=== PATIENT | female | born 2000 | race Caucasian/White ===

== ENCOUNTER 2018-04-17 20:19 | Emergency (ER) | payer BC ==
[2018-04-17] MEDS ORDERED: NS 500 ML IV ONE (20:28)
[2018-04-17] MEDS ORDERED: ONDANSETRON 4 MG/2 ML VIAL IVP ONE (20:28)
[2018-04-17 20:46] LABS: PLATELET COUNT 280 10^3/uL (150-400)
--- NOTE | 2018-04-17 21:45 | EDPHY ---
H & P Time Seen by Provider: 04/17/18 20:29 HPI/ROS: CHIEF COMPLAINT: Nausea vomiting diarrhea HISTORY OF PRESENT ILLNESS: 17-year-old female here with nausea vomiting and diarrhea that started this morning. She has had no blood or bile in her emesis and there has been no blood in her stool. She has no history of Crohn's or ulcerative colitis. She has no recent trouble. She has no recent antibiotic use. She denies any fever or chills, she denies . She denies pain with urination or vaginal discharge. REVIEW OF SYSTEMS: Constitutional: No fever, no chills. Eyes: No discharge. ENT: No sore throat. Cardiovascular: No chest pain, no palpitations. Respiratory: No cough, no shortness of breath. Gastrointestinal: No abdominal pain, + vomiting. Genitourinary: No hematuria. Musculoskeletal: No back pain. Skin: No rashes. Neurological: No headache. Smoking Status: Never smoked Physical Exam: General Appearance: Alert and no distress. ENT: normal dentition. No tonsillar exudate or swelling. Eyes: Pupils equal and round no injection. Respiratory: Chest is nontender, lungs are clear to auscultation. Cardiac: regular rate and rhythm. No lower extremity edema Gastrointestinal: Abdomen is soft and nontender, no masses, bowel sounds normal. Musculoskeletal: Neck is supple and nontender. Extremities have full range of motion and are nontender without deformity Skin: No rashes or lesions. Neuro: Cranial nerves grossly intact. Ambulatory. Constitutional: Initial Vital Signs Temperature (C) 37.0 C 04/17/18 20:22 Heart Rate 119 H 04/17/18 20:22 Respiratory Rate 16 04/17/18 20:22 Blood Pressure 120/80 04/17/18 20:22 O2 Sat (%) 99 04/17/18 20:22 O2 Delivery Mode Room Air Allergies/Adverse Reactions: Penicillins Allergy (Intermediate, Verified 04/17/18 20:20) Rash Home Medications: Medication Instructions Recorded Kariva 28 Day Tablet 04/17/18 Ondansetron Odt [Zofran Odt 4 mg 4 mg PO Q8 #12 tab 04/17/18 (*)] Medical Decision Making ED Course/Re-evaluation: 17-year-old female here with nausea and vomiting and diarrhea starting this morning. She has no abdominal tenderness and labs show minimal leukocytosis felt that the gross abnormalities. She feels greatly improved after IV fluids and Zofran. She is tolerating p.o. At time of discharge. Differential Diagnosis: Appendicitis, bowel obstruction, dehydration, , pyelonephritis - Data Points Laboratory Results: Laboratory Results 04/17/18 20:40 04/17/18 20:40 04/17/18 04/17/18 04/17/18 20:40 20:40 20:40 WBC 12.40 10^3/uL H 10^3/uL (3.80-9.50) RBC 4.53 10^6/uL 10^6/uL (4.18-5.33) Hgb 13.4 g/dL g/dL (12.6-16.3) Hct 39.0 % % (38.0-47.0) MCV 86.1 fL fL (81.5-99.8) MCH 29.6 pg pg (27.9-34.1) MCHC 34.4 g/dL g/dL (32.4-36.7) RDW 12.7 % % (11.5-15.2) Plt Count 280 10^3/uL 10^3/uL (150-400) MPV 10.8 fL fL (8.7-11.7) Neut % (Auto) 87.5 % H % (39.3-74.2) Lymph % (Auto) 8.6 % L % (15.0-45.0) [place] % (Auto) 3.3 % L % (4.5-13.0) Eos % (Auto) 0.2 % L % (0.6-7.6) Baso % (Auto) 0.2 % L % (0.3-1.7) Nucleat RBC Rel Count 0.0 % % (0.0-0.2) Absolute Neuts (auto) 10.85 10^3/uL H 10^3/uL (1.70-6.50) Absolute Lymphs (auto) 1.07 10^3/uL 10^3/uL (1.00-3.00) Absolute Monos (auto) 0.41 10^3/uL 10^3/uL (0.30-0.80) Absolute Eos (auto) 0.02 10^3/uL L 10^3/uL (0.03-0.40) Absolute Basos (auto) 0.02 10^3/uL 10^3/uL (0.02-0.10) Absolute Nucleated RBC 0.00 10^3/uL 10^3/uL (0-0.01) Immature Gran % 0.2 % % (0.0-1.1) Immature Gran # 0.03 10^3/uL 10^3/uL (0.00-0.10) Sodium 136 mEq/L mEq/L (135-145) Potassium 3.8 mEq/L mEq/L (3.3-5.0) Chloride 100 mEq/L mEq/L (97-110) Carbon Dioxide 21 mEq/l L mEq/l (22-31) Anion Gap 15 mEq/L H mEq/L (6-14) BUN 15 mg/dL mg/dL (7-23) Creatinine 0.8 mg/dL mg/dL (0.6-1.0) Estimated GFR > 60 Glucose 108 mg/dL H mg/dL (70-100) Calcium 9.9 mg/dL mg/dL (8.5-10.4) Total Bilirubin 0.6 mg/dL mg/dL (0.1-1.4) AST 31 IU/L IU/L (14-46) ALT 22 IU/L IU/L (9-52) Alkaline Phosphatase 87 IU/L IU/L (38-126) Total Protein 7.8 g/dL g/dL (6.3-8.2) Albumin 4.3 g/dL g/dL (3.5-5.0) Beta HCG, Qual NEGATIVE Medications Given: Discontinued Medications Sodium Chloride (Ns) 500 mls @ 1,000 mls/hr IV ONCE ONE PRN Reason: Protocol Stop: 04/17/18 20:57 Last Admin: 04/17/18 20:36 Dose: 500 mls Ondansetron HCl (Zofran) 4 mg IVP EDNOW ONE Stop: 04/17/18 20:29 Last Admin: 04/17/18 20:37 Dose: 4 mg Departure - Departure Disposition: Home, Routine, Self-Care Clinical Impression: Gastroenteritis Condition: Good Instructions: Gastroenteritis (ED) Referrals: PRISCILA GALLAGHER [Other] - As per Instructions Prescriptions: Ondansetron Odt [Zofran Odt 4 mg (*)] 4 mg PO Q8 #12 tab
[2018-04-17 21:53] VITALS: BP 126/80
== END 2018-04-17 21:53 | disposition home or self-care (01) ==
DX: K52.9 Noninfective gastroenteritis and colitis, unspecified (principal); E86.9 Volume depletion, unspecified
CPT/HCPCS: 96374; J2405